=== PATIENT | female | born 1990 | race Caucasian/White ===

== ENCOUNTER 2018-09-16 19:24 | Emergency (ER) | payer OTHER, SELFPAY ==
[2018-09-16 19:26] VITALS: BP 138/71; PULSE 110; RESP 16; TEMP 36.7; O2SAT 99
--- NOTE | 2018-09-16 19:38 | W.ED.GENAD ---
Discharge Plan Disposition Patient Disposition: HOME Condition: Fair Discharge Details Chief Complaint: Sorethroat Clinical Impression: Strep pharyngitis Primary Care Provider: Taylor Claire ED Provider: Yolanda Burns Home Meds and New Rx's Prescriptions: New amoxicillin 500 mg capsule 500 mg PO BID Qty: 18 RF: 0 Continued ibuprofen 200 MG tablet 3 - 4 tab PO BID PRNRF: 0 ciprofloxacin HCl 500 MG tablet 500 mg PO BID Qty: 14 RF: 0 ondansetron 4 MG tablet,disintegrating 4 mg PO Q8H PRN PRN (Reason: Nausea / Vomiting) Qty: 30 RF: 0 Discharge Instructions Instructions: Strep Throat (ED) Additional Instructions: Encourage hydration. Tylenol and/or Ibuprofen as needed for discomfort. Take antibiotics as prescribed. Even if symptoms improve please finish entire course. Change you toothbrush as discussed. If you develop inability to stay hydrated, are unable to open your mouth or develop other new/worsening symptoms please seek care urgently once again. Follow up with primary care if not improved next week. Stand Alone Forms: Work Release Referrals: Taylor Claire MD, [place] [Primary Care Provider] - Medical Decision Making Patient is a 28-year-old female presents today with chief complaint of sore throat. Patient reports that symptoms began approximately 2 days ago. Is now endorsing right ear pain as well. Is unclear she has had any fevers. Denies any GI upset. Boyfriend was recently diagnosed with strep throat. No rash noted. Denies SOB, cough. On exam, appears comfortable. Exam signficant for bilateral tonsillar hypertrophy, erythema and white exudate. Findings consistent with strep throat. She has palpable lymphadenopathy. Rapid strep positive. UPT negative. Will treat with Amoxicillin. Discussed watch and wait but given patients employment, feel that abx is appropriate. She was given return precautions. Will f/u with PCP if not improving. All questions and concerns were addressed, she is in agreement with this plan. HPI General Mode of arrival: ambulatory. Date/Time Provider Initiated Documentation: 09/16/18 19:31. Limitations to Documentation: no limitations. Information obtained by: patient, family (accompanied by significant other) and RN notes reviewed. History of Present Illness 28 year old F presents to the emergency department with the chief complaint of sore throat, described as moderate, with intensity rated at 6. Quality is described as burning, and is localized to the mouth. Patient reports no radiation. Patient started experiencing this day(s) (2) and it has been constant. No relieving factors improve symptom(s), Eating worsens symptoms . Patient notes loss of appetite; denies chest pain, cough, fever/chills, headaches, nausea/vomiting, rash, shortness of breath, syncope and weakness. Patient did receive the following treatments prior to arrival, NSAID Related Data Home Medications Medication Instructions Recorded Confirmed ibuprofen 3 - 4 tab PO BID PRN 09/13/14 10/12/17 ciprofloxacin HCl 500 mg PO BID #14 tab 10/12/17 ondansetron 4 mg PO Q8H PRN PRN #30 tabef 10/12/17 amoxicillin 500 mg PO BID #18 cap 09/16/18 Previous Rx's Medication Instructions Recorded ciprofloxacin HCl 500 mg PO BID #14 tab 10/12/17 ondansetron 4 mg PO Q8H PRN PRN #30 tabef 10/12/17 amoxicillin 500 mg PO BID #18 cap 09/16/18 Allergies Allergy/AdvReac Type Severity Reaction Status Date / Time No Known Allergies Allergy Unverified 09/16/18 19:33 General Stated Complaint: Sorethroat ROMAN: 4 Review of Systems Constitutional Reports as per HPI, Denies chills, Denies fever(s), Denies headache(s), Denies lethargy and Reports poor appetite Eyes Reports as per HPI, Denies eye discharge and Denies irritation ENT Reports as per HPI, Denies dizziness, Reports otalgia (right), Denies headache(s), Denies mouth lesions, Denies nasal discharge, Denies neck pain, Denies sinus pain, Denies sinus pressure, Reports sore throat, Denies throat swelling and Denies tongue swelling Cardiovascular Reports as per HPI, Denies chest pain and Denies dyspnea Respiratory Reports as per HPI, Denies cough and Denies dyspnea Gastrointestinal Reports as per HPI, Denies abdominal pain, Denies change in bowel habits, Denies nausea and Denies vomiting Musculoskeletal Denies neck pain Integumentary/Breasts Reports as per HPI and Denies rash Neurologic Reports as per HPI, Denies dizziness and Denies headache(s) Allergic/Immunologic Denies throat swelling and Denies tongue swelling [facility] Surgical History Appendectomy (11/27/16) Family History Mother Diabetes Father No problems noted. Brother No problems noted. Grandfather Diabetes Grandfather Personal history of malignant neoplasm Grandmother No problems noted. Grandmother Personal history of malignant neoplasm FAMILY HISTORY Diabetes Alcohol abuse Personal history of malignant neoplasm Anxiety Depressive disorder Social History Smoking/Tobacco Use Status: Former Tobacco Use Alcohol Intake: current Alcohol Intake frequency: a few times a month Drug use: Occasionally Substance use type: marijuana Do you feel safe at home: Yes Do you feel safe in your relationship?: Yes Exam Const General: cooperative, healthy appearing, comfortable, no acute distress, well developed and well groomed Nutritional Appearance: average body habitus and well nourished Orientation: alert and awake [facility] Head: normal to inspection, normocephalic and atraumatic Ears: hearing grossly normal bilaterally, external ears normal and TM's normal bilaterally General nose exam: external nose normal and nares normal Face and sinus: normal facial exam, sinuses nontender and face symmetric Mouth: oral mucosae normal, lip normal, tongue normal, oropharynx normal, moist mucous membranes, no muffled voice, no trismus and No restricted motion Teeth and gingiva: dentition normal Throat: uvula midline, abnormal tonsil bilaterally erythema, exudates and hypertrophy and no peritonsillar masses Eyes General: appearance normal, both eyes and all related structures Neck Neck: normal visual inspection, full ROM, no lymphadenopathy and no meningeal signs Resp Effort & Inspection: normal respiratory effort, able to speak in complete sentences and no respiratory distress Auscultation: clear to auscultation bilaterally, no rales, no rhonchi and no wheezes Cardio Rate: regular rate Rhythm: regular rhythm Heart Sounds: S1 normal and S2 normal Skin General skin exam: no rashes or lesions noted Neuro General: alert and awake Cognition: normal cognition Speech: speech normal Gait: normal gait Psych Appearance: grossly normal and well kempt Mental Status: mental status grossly normal Speech and Movement: speech and movement normal Course Vital Signs Temperature 36.7 C 09/16/18 19:26 Pulse 110 H 09/16/18 19:26 Respiratory Rate 16 09/16/18 19:26 Blood Pressure 138/71 09/16/18 19:26 Pulse Oximetry 99 09/16/18 19:26 Temperature 36.7 C 09/16/18 19:26 Temperature Source Skin 09/16/18 19:26 Pulse 110 H 09/16/18 19:26 Respiratory Rate 16 09/16/18 19:26 Respiratory Effort Non-Labored 09/16/18 19:31 Blood Pressure 138/71 09/16/18 19:26 Blood Pressure Position Sitting 09/16/18 19:26 Pulse Oximetry 99 09/16/18 19:26 Oxygen Delivery Method Room Air 09/16/18 19:26 Oxygen Flow Rate 0 09/16/18 19:26 Pain Level 6 09/16/18 19:26
[2018-09-16] MEDS: Amoxicillin 500 MG CAP PO ×2 (20:12)
[2018-09-16] MEDS: Acetaminophen 500 MG TAB 1000 MG PO (20:13)
== END 2018-09-16 20:15 | disposition home or self-care (01) ==
PROVIDERS: Emergency Provider Physician Assistant; PCP Nurse Practitioner Family
DX: J02.0 Streptococcal pharyngitis (principal)
CPT/HCPCS: 87880; 99283

== ENCOUNTER 2019-06-02 12:09 | Emergency (ER) | payer OTHER, SELFPAY ==
[2019-06-02 12:17] VITALS: BP 102/76; PULSE 86; RESP 16; TEMP 36.5; O2SAT 100
--- NOTE | 2019-06-02 12:22 | ED.GENADUL_ITS ---
Discharge Plan Disposition Patient Disposition: HOME Condition: Good Discharge Details Chief Complaint: Nausea/Vomit/Diar Clinical Impression: Gastroenteritis Primary Care Provider: Unknown,Unknown ED Provider: Rain Garcia Home Meds and New Rx's Prescriptions: New ondansetron HCl [Zofran] 4 mg tablet 4 mg PO Q8H PRN (Reason: nausea and vomiting) Qty: 7 RF: 0 No Action ibuprofen 200 MG tablet 3 - 4 tab PO BID PRNRF: 0 escitalopram oxalate [Lexapro] 20 mg Tablet 20 mg PO RF: 0 Discharge Instructions Instructions: Gastroenteritis (ED) Additional Instructions: Drink plenty of fluids. Use nausea medication only if needed for nausea and vomiting. Rest activities as tolerated. Advance diet as tolerated. Avoid dairy, spicy and acidic until symptoms have fully relieved. Reevaluation for any persistence of symptoms. Return for any alarming, worsening or increasing symptoms if needed sooner. Discharge Data Discharge Date/Time-TO BE ENTERED AT DEPARTURE: 06/02/19 15:45 Medical Decision Making Is a 28-year-old patient presenting to the emergency room for onset of nausea, vomiting and diarrhea which began at 4:00 this morning associated with subjective chills and fevers. Patient reports several episodes of vomiting beginning this morning which has persisted since, in the last 3 hours describing mostly dry heaving and bilious vomitus. Watery diarrhea associated. Patient was at a concert last night but reports only having 3 drinks. Denies any drug use or use of marijuana. Patient reports abdominal cramping is intermittent relieved after vomiting or bowel movement. Patient is currently menstruating. Patient denies any upper respiratory symptoms. No other concerns or complaints. Feeling dehydrated which prompted her evaluation to the ER today. On exam patient does appear mildly dehydrated however has benign abdominal exam. Clear breath sounds. No focal findings. Plan of care to control patient's nausea as well as rehydrate. Labs ordered as well as testing. Labs revealed a mild elevation of white blood cell count at 12.66 potassium of 3.4 no obvious urinary tract complaints, urine culture pending given urinalysis with moderate bacteria present although patient is asymptomatic therefore will wait for culture results. Patient's vital signs are stable. Patient feels significantly improved at this time. Patient requesting p.o. trial. Patient tolerated oral fluids without difficulty, Jell-O without difficulty. Patient feeling significantly better. Feels stable for discharge home. EKG obtained given patient's daily medication of Lexapro and plan to prescribe Zofran. Patient's EKG is normal sinus rhythm and rate with a normal QTc interval. Likely patient either experiencing viral illness or vomiting after drinking last night. Benign abdominal exam at this time. I have very low suspicion for any intra-abdominal emergency today. Encouraged conservative treatments, alarming symptoms discussed. The patient was stable and requested discharge. Prior to discharge, my usual and customary return precautions were reviewed with the patient - this included follow-up instructions and reasons to return to the Emergency Department if conditions worsens, does not improve as expected, or other new concerns arise. HPI General Date/Time Provider Initiated Documentation: 06/02/19 12:21 . HPI Narrative: This is a 28-year-old patient presenting to the emergency room for complaints of nausea vomiting and diarrhea which began at 4:00 this morning. Patient reports subjective fevers and chills since this morning. Patient reports intermittent abdominal pain which is relieved after vomiting or moving bowels. Patient reports vomiting several times since onset of 4 this morning the last 3 hours primarily bilious and dry heaving. Patient denies any blood in vomitus. Patient reports diarrhea is described as watery with no associated blood. Patient is currently menstruating. Patient did go to a concert last night but reports having only 3 drinks. Denies use of marijuana last night. Patient reports persistent nausea and now feeling dehydrated with some chills. Patient denies any nasal congestion, sore throat or cough. Denies any other upper respiratory symptoms. Related Data Home Medications Medication Instructions Recorded Confirmed ibuprofen 3 - 4 tab PO BID PRN 09/13/14 06/02/19 escitalopram oxalate [Lexapro] 20 mg PO 06/02/19 ondansetron HCl [Zofran] 4 mg PO Q8H PRN #7 tab 06/02/19 Previous Rx's Medication Instructions Recorded ondansetron HCl [Zofran] 4 mg PO Q8H PRN #7 tab 06/02/19 Allergies Allergy/AdvReac Type Severity Reaction Status Date / Time No Known Allergies Allergy Unverified 06/02/19 12:24 General ROMAN: 4 Review of Systems All systems reviewed & are unremarkable except as noted in HPI and below Constitutional Constitutional: Reports chills, Reports fever(s), Reports headache(s) and Reports malaise ENT Ears, Nose, Mouth, and Throat: Denies vertigo, Denies dizziness, Denies otalgia, Reports headache(s), Denies sinus pain, Denies sinus pressure and Denies sore throat Cardiovascular Cardiovascular: Denies chest pain Respiratory Respiratory: Denies cough Gastrointestinal Gastrointestinal: Reports abdominal pain, Reports cramping, Reports diarrhea, Reports nausea and Reports vomiting Genitourinary Genitourinary: Denies dysuria Neurologic Neurologic: Denies vertigo, Denies dizziness and Reports headache(s) PFSH Family History Mother Diabetes Father No problems noted. Brother No problems noted. Grandfather Diabetes Grandfather Personal history of malignant neoplasm Grandmother No problems noted. Grandmother Personal history of malignant neoplasm FAMILY HISTORY Diabetes Alcohol abuse Personal history of malignant neoplasm Anxiety Depressive disorder Social History Smoking/Tobacco Use Status: Former Tobacco Use Alcohol Intake: current Alcohol Intake frequency: a few times a month Drug use: Occasionally Substance use type: marijuana Do you feel safe at home: Yes Do you feel safe in your relationship?: Yes Exam Narrative Exam Narrative: CONST: Healthy appearing patient, in no acute distress. Well hydrated. Alert and oriented. HENMT: Head nomocephalic, normal to inspection. Atraumatic. Hearing grossly normal. TMs appear normal bilaterally, mild pharyngeal erythema. NECK: Normal visual inspection. FROM. Trachea midline. No Midline tenderness. No cervical lymphadenopathy. CHEST: Normal insepection of the chest. RESP: Normal respiratory effort. Speaking full sentences. No cough. No audible wheezing. No retractions. Breath sounds clear and equal bilaterally, no wheezing, rhonchi or rales CARDIO: No JVD. No murmur, regular rate and rhythm GI: Bowel sounds present in all 4 quadrants. Abdomen is soft. Nontender. No peritoneal signs, rebound or guarding. MUSCULOSKELETAL: Normal Gait. FROM of all extremities. SKIN: Normal. Dry. No rashes. NEURO: Alert and awake. Speech clear. PSYCH: Normal affect. Cooperative.
[2019-06-02] MEDS: Ondansetron 4 MG/2 ML VIAL IVP (12:50)
[2019-06-02] MEDS: Normal Saline 1,000 ML 1000 ML IV ×2 (12:50→13:30)
[2019-06-02 12:57] LABS: Abs Immature Grans 0.03 k/cumm (0.0-0.09); Absolute Lymphocyte Count 0.73 k/cumm (1.2-3.4); Absolute Monocyte Count 0.44 k/cumm (0.11-0.7); Basophils % 0.2; HCT 38.3 % (36.0-46.0); HGB 12.9 g/dL (12.0-15.5); Immature Grans % 0.2 %; Lymphocytes % 5.8; Mean Corp. HGB Concentration 33.7 g/dL (32.0-36.0); Mean Corpuscular Hemoglobin 32.4 pg (27.0-33.0); Mean Corpuscular Volume 96.2 fL (80-95); Monocytes % 3.5; Neutrophils % 90.3; Platelet Count 265 x1000/uL (130-400); RBC 3.98 m/cumm (4.00-5.20); RBC Distribution Width 12.6 % (11.7-14.6); White Blood Cell Count 12.66 k/cumm (4.4-10.8)
[2019-06-02 12:59] LABS: Absolute Basophil Count 0.03 k/cumm (0.0-0.2); Absolute Neutrophil Count 11.43 k/cumm (1.2-6.7)
[2019-06-02 13:11] LABS: ALT 25 U/L (14-59); AST 21 U/L (15-37); Albumin 4.1 g/dL (3.4-5.0); Alkaline Phosphatase 41 U/L (46-116); BUN 13 mg/dL (7-18); Bilirubin, Total 0.9 mg/dL (0.2-1.0); Calcium 8.7 mg/dL (8.5-10.1); Chloride 106 mmol/L (98-107); Glucose 121 mg/dL (74-106); Lipase 59 U/L (73-393); Potassium 3.4 mmol/L (3.5-5.1); Sodium 143 mmol/L (136-145); Total Protein 6.9 g/dL (6.4-8.2)
[2019-06-02 13:16] LABS: HCG Qual (Serum) Negative
[2019-06-02 15:38] VITALS: BP 116/78; PULSE 84; RESP 20; O2SAT 99
== END 2019-06-02 15:45 | disposition home or self-care (01) ==
PROVIDERS: Emergency Provider Physician Assistant
DX: R51 Headache (principal); R11.2 Nausea with vomiting, unspecified; K52.9 Noninfective gastroenteritis and colitis, unspecified; E86.0 Dehydration
CPT/HCPCS: 36415; 80053; 83690; 93005; 96361; 96374; 99284; 84703; 85025; 93010; J2405

== ENCOUNTER 2020-04-19 14:06 | Outpatient (REF) | payer OTHER, SELFPAY ==
[2020-04-19 18:14] LABS: HCT 41.7 % (36.0-46.0); MCH 32.5 pg (27.0-33.0); MCHC 33.6 % (32.0-36.0); MCV 96.8 fL (80-95); MPV 9.3 fL (8.0-11.0); Platelet Count 314 10^3/uL (130-400); RBC 4.31 10^6/uL (3.93-5.22); RDW 12.8 % (11.7-14.6)
[2020-04-19 18:40] LABS: ALT 17 U/L (14-59); AST 13 U/L (15-37); Albumin 4.3 g/dL (3.4-5.0); Alkaline Phosphatase 67 U/L (46-116); Anion Gap 9.5 mmol/L (3-11); BUN 15 mg/dL (7-18); Bilirubin, Total 0.4 mg/dL (0.2-1.0); CO2 29.5 mmol/L (21.0-32.0); CREATININE 0.81 mg/dL (0.55-1.02); Calcium 9.1 mg/dL (8.5-10.1); Calculated LDL 122 mg/dL (<100); Chloride 99 mmol/L (98-107); Cholesterol 206 mg/dL (<200); Glucose 82 mg/dL (74-106); HDL Cholesterol 68 mg/dL (40-60); Potassium 3.6 mmol/L (3.5-5.1); Sodium 138 mmol/L (136-145); TSH (W/Ref FT4) 3.61 uIU/mL (0.36-3.74); Total Protein 7.3 g/dL (6.4-8.2); Triglyceride 81 mg/dL (<150)
[2020-04-19 19:42] LABS: Vitamin D 25 Total 14.5 ng/ml (30-100)
[2020-04-21 09:48] LABS: HIV-1/2 Ag & Ab Screen Negative (Negative)
[2020-04-21 10:06] LABS: Hepatitis C Ab w Rflx HCV PCR Negative (Negative)
== END 2020-04-19 14:26 ==
LOC: NCHCN 14:06
PROVIDERS: PCP Nurse Practitioner Family; Visit Provider Nurse Practitioner Family
DX: Z13.220 Encounter for screening for lipoid disorders (principal); Z83.3 Family history of diabetes mellitus; Z00.00 Encounter for general adult medical examination without abnormal findings
CPT/HCPCS: 80053; 80061; 82306; 85027; 86803; 87389; 84443

== ENCOUNTER 2021-11-07 13:45 | Emergency (ER) | payer OTHER, SELFPAY ==
[2021-11-07 13:52] VITALS: BP 127/90; PULSE 85; RESP 14; TEMP 36.6; O2SAT 100
--- OUTSIDE RECORDS SUMMARY | 2021-11-07 13:56 | XMS_ITS | Encounter Summary ---
:1990 Author Organization [facility] Address [address] [place] [address] Care Team Providers Name Role Phone Unknown, Provider Primary Care Provider Encounter Details Date Type Department Care Team Description 04/20/2020 Lab Requisition [facility] Outr Resulting Lab, Pathology & Laboratory Provider [facility] [address] [place] [address] Social History Tobacco Use Types Packs/Day Years Used Date Never Assessed Sex Assigned at Date Recorded Not on file documented as of this encounter Plan of Treatment Not on filedocumented as of this encounter Procedures Procedure Name Priority Date/Time Associated Diagnosis Comme nts HEPATITIS C AB W Routine 04/19/2020 18:30 Results for this REFLEX TO HCV RNA EST procedure are in BY PCR the results section. documented in this encounter Results HEPATITIS C AB W REFLEX TO HCV RNA BY PCR (04/19/2020 18:30 EST) Pathologist Sig nature Hep C Antibody Negative Negative [facility] Specimen Blood - Venous blood (substance) Performing Organization Address City/State/ZIP Code Phon e Number [facility] [address] [place] [address] SERVICES documented in this encounter Visit Diagnoses Not on filedocumented in this encounter Care Teams Bacteriology Teacher Relationship Specialty Start Date End Date Unknown, Provider, PCP - General 09/14/14 documented as of this encounter
--- OUTSIDE RECORDS SUMMARY | 2021-11-07 13:56 | XMS_ITS | Encounter Summary ---
:1990 Author Organization [facility] Address [address] [place] [address] Care Team Providers Name Role Phone Unknown, Provider Primary Care Provider Encounter Details Date Type Department Care Team Description 09/13/2014 Results Only [facility] Taylor Claire MD [phone] [place] [id number] (Wo rk) Social History Tobacco Use Types Packs/Day Years Used Date Never Assessed Sex Assigned at Date Recorded Not on file documented as of this encounter Plan of Treatment Not on filedocumented as of this encounter Procedures Procedure Name Priority Date/Time Associated Diagnosis Comme nts PAP TEST- RESULT Routine 09/13/2014 0:00 EDT Resu lts for this ONLY procedure are i n the results section. documented in this encounter Results PAP TEST- RESULT ONLY (09/13/2014 0:00 EDT) Pathology Report: CYTOPATHOLOGY REPORT [facility] Reports generated via electronic interface contain meg ginal data; SERVICES however they are lacking the format of the original re port. Caution should be taken when reading/interpreting unfo rmatted reports. Name: ? ORIN ADAMS ? Accession #: ? [id number] : ? 1990 (Age: 23) ??F ?Collect Date: ? 0508/2014 Location: ? [facility] ? Receive Date : ? 09/14/2014 Provider: ?TAYLOR CLAIRE MD Copy to: ? Specimen/Source: ? Pap Test, Cervix/Endocervix, ThinPrep Imaging System with manual evaluation Last Menstrual Period: ? 5 years ago Hormonal/Contraceptive Status: ? Depo-Provera Other: ? Additional clinical information: no history of pap sme ars ? SPECIMEN ADEQUACY ? Satisfactory for Evaluation - transformation zone component present GENERAL CATEGORIZATION ? Negative for Intraepithelial Lesion or Malignan cy ? Document reviewed and electronically signed by: ? COLE Salcido(ASCP) ? Report Date: ??09/23/2014 11:54 End of Report Specimen Performing Organization Address City/State/ZIP Code Phon e Number [facility] [address] [place] [address] SERVICES documented in this encounter Visit Diagnoses Not on filedocumented in this encounter Care Teams Jailer Relationship Specialty Start Date End Date Unknown, Provider, PCP - General 09/14/14 documented as of this encounter
--- OUTSIDE RECORDS SUMMARY | 2021-11-07 13:56 | XMS_ITS | Encounter Summary ---
:1990 Author Organization [facility] Address [address] [place] [address] Care Team Providers Name Role Phone Unknown, Provider Primary Care Provider Encounter Details Date Type Department Care Team Description 04/20/2020 Lab Requisition [facility] Outr Resulting Lab, Pathology & Laboratory Provider [facility] [address] [place] [address] Social History Tobacco Use Types Packs/Day Years Used Date Never Assessed Sex Assigned at Date Recorded Not on file documented as of this encounter Plan of Treatment Not on filedocumented as of this encounter Procedures Procedure Name Priority Date/Time Associated Comments Diagnosis HIV 1/2 ANTIGEN AND Routine 04/19/2020 18:30 Resu lts for this ANTIBODY, 4TH EST procedure are in GENERATION the results section. documented in this encounter Results HIV 1/2 ANTIGEN AND ANTIBODY, 4TH GENERATION (04/19/2020 18:30 EST) HIV 1 and 2 Negative Negative [facility] Antibody/p24 Comment: LABORATORY Antigen, 4th If acute HIV-1 infection is suspected in a high risk ??patient, submit plasma specimen for HIV-1 RNA quantitation test. SERV ICES Generation Fourth Generation assay performed on the Siemens [employer]nera ur. Specimen Blood - Venous blood (substance) Performing Organization Address City/State/ZIP Code Phon e Number [facility] [address] [place] [address] SERVICES documented in this encounter Visit Diagnoses Not on filedocumented in this encounter Care Teams Keyboard Teacher Relationship Specialty Start Date End Date Unknown, Provider, PCP - General 09/14/14 documented as of this encounter
--- NOTE | 2021-11-07 13:59 | ED.GENADUL_ITS ---
Discharge Plan Disposition Patient Disposition: HOME Condition: Improving Discharge Details Clinical Impression: Abdominal pain Primary Care Provider: Kale Powell ED Provider: Amita Boyer Discharge Instructions Instructions: Abdominal Pain (ED) Additional Instructions: Your imaging today is reassuring and shows no evidence of acute concerning or significant findings. Your potassium was slightly low at 3.2 which likely is associated with diet and can be supplemented with foods such as bananas, kale, tomatoes, garlic. Your white blood cell count was also elevated which could be indicative of a stress response. Your CT scan imaging today was done without oral or IV contrast. If your symptoms return and worsen, it is recommended to return immediately to the emergency department for further evaluation and consideration for repeat CT imaging. Drink plenty of fluids and get plenty of rest. Alternate tylenol and motrin as needed and directed for pain. Follow-up with your primary care doctor and [facility] within the next 1 to 2 weeks. Return to the emergency department with any worsening or new concerning symptoms. Referrals: [facility] [place] [Provider Group] Discharge Data Discharge Physician: Amita Boyer Medical Decision Making 1400 -- 31-year-old female with a history of appendectomy presents with right lower quadrant abdominal pain with radiation to her back for the past 4 hours. Admits to nausea but denies any vomiting, diarrhea or urinary symptoms. Vitals within normal limits. Patient appears uncomfortable. She is writhing in pain on the stretcher. She has been on a dry heaving here in the emergency department. Urine test negative. Differential diagnosis includes kidney stone, ovarian cyst, ovarian torsion, cholelithiasis, cholecystitis. Will obtain pelvis and transvaginal ultrasounds, gallbladder ultrasound, screening labs, give fluids, dose of IV Dilaudid, Toradol, Phenergan and reassess. Patient is agreeable to CT renal colic if indicated. 1510 -- labs and imaging reviewed. White blood cell count 20. Potassium 3.2, will replete. T bili 1.5, has been 1.7 in the past. Lipase normal. Urinalysis negative for infection or blood. Pelvis and transvaginal and gallbladder ultrasound unremarkable. Patient reassessed and her pain and nausea has improved. Will give additional IV fluids and refer for CT renal colic to rule out kidney stone. 1630 --CT renal colic negative for acute findings. Patient reassessed and she remains pain-free. Patient feels comfortable going home. Discussed with patient that her imaging today was done without oral or IV contrast and in the setting of a white blood cell count of 20 which is likely a stress response, if her symptoms return and worsen, it is recommended to return immediately to the emergency department for reevaluation and consideration for additional imaging. Patient states she has not been sexually active for a year and denies any known exposure to STDs. She states she would follow-up with [facility] for evaluation. Usual and customary return precautions given prior to discharge. Medical Records Medical records reviewed: Yes I reviewed the patient's medical records. Imaging Data Radiologic Study: Radiologist's impression: US ABDOMEN LIMITED CLINICAL HISTORY:? R mid abdomen pain, r/o cholecystitis TECHNIQUE:? Ultrasound abdomen performed using standard protocol. COMPARISON:? No exams were available for comparison FINDINGS: PANCREAS: Normal where visualized. GALLBLADDER:No evidence of cholelithiasis. No evidence of wall thickening. No pericholecystic fluid identified. BILIARY SYSTEM: Common bile duct measures < 7 mm. No intrahepatic biliary ductal dilation. CANDELARIO'S SIGN: Negative. RIGHT KIDNEY: Kidney is normal in size.? No evidence of renal calculi. No evidence of hydronephrosis. No renal mass or cyst identified. ASCITES: None seen. IMPRESSION: 1. Negative limited gallbladder ultrasound. 2. Results of this exam have been verbally communicated with provider. US PELVIS ? TRANSVAGINAL CLINICAL HISTORY: ? RLQ abd pain, nausea, r/o ovarian cyst/torsion.? TECHNIQUE:? Ultrasound renal, pelvic, both abdmonal and tranvaginal was performed using standard protocol. COMPARISON:? No exams were available for comparison FINDINGS: RENAL: Renal size in cm: Right: 10.6 left: 12.1 Echogenicity: Normal. Hydronephrosis: No. Cyst or mass: No. Nephrolithiasis: No. Other findings: None. Color: Symmetric and uniform flow to both kidneys.? PELVIC: UTERUS: Position: Anteverted. Size: 4.9 long by 3 AP by 4 transverse cm Endometrium: 0.1 cm. Normal for patient's menstrual status.? There is an IUD which is in good position. Myometrium: Unremarkable. Cervix: Unremarkable. OVARIES: Right: 3.5 x 2.5 x 2.6 cm Cyst or mass: No suspicious cystic or solid masses. Left: 3.4 x 2.1 x 3.1 cm Cyst or mass: No suspicious cystic or solid masses. DOPPLER: Color: Symmetric and uniform flow to both ovaries. No hyperemia. CUL-DE-SAC: Free fluid: None. IMPRESSION: 1. Normal sonographic appearance of the kidneys. 2. Normal-appearing uterus with endometrial stripe within normal limits.? IUD is in good position. 3. Unremarkable bilateral ovaries. 4. Results of this exam have been verbally communicated with provider. CT RENAL COLIC WO CLINICAL HISTORY: ? R mid and lower abd/back pain, r/o kidney stone.? TECHNIQUE:? Imaging Protocol: Axial computed tomography images with coronal and sagittal reformatted images were created and reviewed. COMPARISON:? CT ABD ? PELVIS WITH CONTRAST from 10/12/2017 FINDINGS: ABDOMEN: Lung Bases: Normal where visualized. Liver: Normal density. No measurable mass. Gallbladder and biliary tract: No radiodense calculus or biliary ductal dilation. Pancreas: Normal density, no abnormal calcifications or inflammatory process. Spleen: Normal. Kidneys: Normal size, contour and axis.No radiodense stones or obstructive uropathy. No masses seen. Adrenal glands: No mass is seen. Lymph nodes: Within normal limits.? Abdominal Aorta: Abdominal portion non-dilated. PELVIS:? Bladder:Symmetric distention, no gross wall thickening. Bowel: No obstruction or bowel wall thickening. No evidence of appendicitis.? Peritoneal cavity: No ascites, collection or mesenteric inflammatory response.? No free air.? Reproductive organs: Unremarkable as visualized.? There is an IUD in good position. Bones: Within normal limits. Soft Tissues: Within normal limits. IMPRESSION: 1. No evidence of nephrolithiasis or hydronephrosis. 2. Results of this exam have been verbally communicated with provider.? Lab Data Lab results reviewed: Yes I reviewed the patient's lab results. Labs: Laboratory Tests Range/Units 11/07/21 11/07/21 11/07/21 14:01 14:06 14:06 WBC (4.4-10.8) 10^3/uL 20.95 H RBC (3.93-5.22) 10^6/uL 4.45 Hgb (11.2-15.7) g/dL 14.1 Hct (36.0-46.0) % 42.5 MCV (80-95) fL 96 H MCH (27.0-33.0) pg 31.7 MCHC (32.0-36.0) % 33.2 RDW (11.7-14.6) % 12.8 Plt Count (130-400) 10^3/uL 293 MPV (8.0-11.0) fL 9.1 Immature Gran % 0.5 Neutrophils % 80.7 Lymphocytes % 12.1 Monocytes % 6.1 Eosinophils % 0.2 Basophils % 0.4 Nucleated RBC % (0.0-0.3) % 0.0 Absolute Neutrophils (1.2-6.7) 10^3/uL 16.91 H Absolute Lymphocytes (1.2-3.4) 10^3/uL 2.53 Absolute Monocytes (0.1-0.8) 10^3/uL 1.28 H Absolute Eosinophils (0.0-0.7) 10^3/uL 0.04 Absolute Basophils (0.0-0.2) 10^3/uL 0.08 Sodium (136-145) mmol/L 139 Potassium (3.5-5.1) mmol/L 3.2 L Chloride (98-107) mmol/L 103 Carbon Dioxide (21.0-32.0) mmol/L 28.0 Anion Gap (3-11) mmol/L 8.0 BUN (7-18) mg/dL 9 Creatinine (0.55-1.02) mg/dL 0.8 Estimated GFR/1.73 m2 (mL/min/1.73m2) >= 60.00 Glucose (74-106) mg/dL 119 H Calcium (8.5-10.1) mg/dL 8.9 Total Bilirubin (0.2-1.0) mg/dL 1.5 H AST (15-37) U/L 14 L ALT (14-59) U/L 20 Alkaline Phosphatase (46-116) U/L 51 Total Protein (6.4-8.2) g/dL 7.3 Albumin (3.4-5.0) g/dL 4.4 Lipase (73-393) U/L 129 Urine Color (Yellow) Yellow Urine Clarity (Clear) Clear Urine pH (5-8) 5.5 Ur Specific [place] (1.005-1.025) >= 1.030 H Urine Protein (Negative) mg/dL Negative Urine Ketones (Negative) mg/dL Negative Urine Blood (Negative) Negative Urine Nitrite (Negative) Negative Urine Bilirubin (Negative) Negative Urine Urobilinogen (Up TO 0.2) EU/dL 0.2 Ur Leukocyte Esterase (Negative) Negative Urine Glucose (Negative) mg/dL Negative HPI General Mode of arrival: ambulatory . Date/Time Provider Initiated Documentation: 11/07/21 13:51 . Limitations to Documentation: no limitations . Information obtained by: patient . HPI Narrative: Patient is a 31-year-old female with a history of appendectomy presents with constant sharp right lower quadrant abdominal pain with radiation around to her back for the past 4 hours. Patient admits to nausea but denies any vomiting, fever, urinary symptoms or diarrhea. She has not taken a medication for pain. Related Data Allergies Allergy/AdvReac Type Severity Reaction Status Date / Time No Known Allergies Allergy Unverified 11/07/21 13:56 General Stated Complaint: Abd Prob ROMAN: 3 Review of Systems All systems reviewed & are unremarkable except as noted in HPI and below Constitutional Constitutional: Denies chills, Denies excessive sweating, Denies fatigue, Denies fever(s), Denies weakness and Denies weight loss Eyes Eyes: Reports system reviewed and no additional complaints, except as documented and Denies blurry vision ENT Ears, Nose, Mouth, and Throat: Denies vertigo, Denies dizziness, Denies otalgia, Denies nasal congestion, Denies sore throat and Denies throat swelling Cardiovascular Cardiovascular: Denies chest pain, Denies syncope, Denies rapid heart rate and Denies dyspnea Respiratory Respiratory: Denies chest congestion, Denies cough, Denies pain on inspiration and Denies dyspnea Gastrointestinal Gastrointestinal: Reports abdominal pain, Denies diarrhea, Reports nausea and Denies vomiting Genitourinary Genitourinary: Denies hematuria, Denies dysuria and Denies flank pain Musculoskeletal Musculoskeletal: Denies back pain and Denies joint swelling Integumentary/Breasts Skin/Breast: Denies lesions and Denies rash Neurologic Neurologic: Denies behavioral changes, Denies confusion, Denies vertigo, Denies dizziness, Denies syncope, Denies localized weakness and Denies weakness Psychiatric Psychiatric: Denies behavioral changes, Denies confusion and Denies depression Endocrine Endocrine: Denies excessive sweating and Denies fatigue Hematologic/Lymphatic Hematologic/Lymphatic: Denies easy bruising and Denies lymphadenopathy Allergic/Immunologic Allergic/Immunologic: Denies throat swelling PFSH All Active Problems (Updated 11/07/21 @ 16:33 by Amita Boyer DO) Abdominal pain (Acute) Medical History (Updated 11/07/21 @ 16:33 by Amita Boyer DO) No significant past medical history Surgical History Appendectomy (11/27/16) Family History Mother Diabetes Father No problems noted. Brother No problems noted. Grandfather Diabetes Grandfather Personal history of malignant neoplasm Grandmother No problems noted. Grandmother Personal history of malignant neoplasm FAMILY HISTORY Diabetes Alcohol abuse Personal history of malignant neoplasm Anxiety Depressive disorder Social History Smoking/Tobacco Use Status: Current every day Smoking risk assessment performed?: Yes Alcohol Intake: former Drug use: Occasionally Substance use type: does not use and marijuana Do you feel safe at home: Yes Do you feel safe in your relationship?: Yes Exam Const General: cooperative and uncomfortable Orientation: alert, awake and oriented x3 HENMT Head: normal to inspection Ears: hearing grossly normal bilaterally, external ears normal and TM's normal bilaterally General nose exam: external nose normal Face and sinus: normal facial exam Mouth: oral mucosae normal Teeth and gingiva: dentition normal Throat: posterior oropharynx normal Eyes General: appearance normal, both eyes and all related structures Eyelids: eyelids normal Pupils: PERRL EOM: EOM intact bilaterally Neck Neck: normal visual inspection Lymphatic: no lymphadenopathy noted Chest Chest: normal inspection of the chest Resp Effort & Inspection: normal respiratory effort and able to speak in complete sentences Auscultation: clear to auscultation bilaterally Cardio Rate: regular rate Rhythm: regular rhythm GI Inspection: normal to inspection Palpation: soft, not firm, no guarding, no hepatosplenomegaly, no masses and tender (Right mid to lower abdomen) Auscultation: normal bowel sounds Skin General skin exam: no rashes or lesions noted Neuro General: patient alert and patient awake Cognition: normal cognition Speech: speech normal Gait: normal gait Motor: muscle tone normal throughout Sensory Exam: no sensory deficits noted Extrem General: normal to inspection, full ROM and capillary refill normal Psych Appearance: grossly normal Mental Status: mental status grossly normal Speech and Movement: speech and movement normal Affect: normal affect Thought Process: normal Course Vital Signs Vital signs: Vital Signs Temperature 97.9 F 11/07/21 13:52 Pulse 85 11/07/21 13:52 Respiratory Rate 14 11/07/21 13:52 Blood Pressure 127/90 11/07/21 13:52 Pulse Oximetry 100 11/07/21 13:52 Temperature 97.9 F 11/07/21 13:52 Temperature Source Temporal Artery Scan 11/07/21 13:52 Pulse 85 11/07/21 13:52 Respiratory Rate 14 11/07/21 13:52 Blood Pressure 127/90 11/07/21 13:52 Blood Pressure Position Supine 11/07/21 13:52 Pulse Oximetry 100 11/07/21 13:52 Oxygen Delivery Method Room Air 11/07/21 13:52 Oxygen Flow Rate 0 11/07/21 13:52 Pain Level 8 11/07/21 13:52
[2021-11-07 14:13] LABS: Bilirubin Negative (Negative); Blood Negative (Negative); Clarity Clear (Clear); Glucose Negative (Negative); Ketones Negative (Negative); Leukocyte Esterase Negative (Negative); Nitrite Negative (Negative); Specific Gravity >= 1.030 (1.005-1.025); Urobilinogen 0.2 EU/dL (Up TO 0.2); pH 5.5 (5-8)
--- NOTE | 2021-11-07 14:15 | DI.US_ITS ---
Exam(s) US ABDOMEN LIMITED EXAM: US ABDOMEN LIMITED CLINICAL HISTORY: R mid abdomen pain, r/o cholecystitis TECHNIQUE: Ultrasound abdomen performed using standard protocol. COMPARISON: No exams were available for comparison FINDINGS: PANCREAS: Normal where visualized. GALLBLADDER:No evidence of cholelithiasis. No evidence of wall thickening. No pericholecystic fluid i dentified. BILIARY SYSTEM: Common bile duct measures < 7 mm. No intrahepatic biliary ductal dilation. CANDELARIO'S SIGN: Negative. RIGHT KIDNEY: Kidney is normal in size. No evidence of renal calculi. No evidence of hydronephrosis. No renal mass or cyst identified. ASCITES: None seen. IMPRESSION: 1. Negative limited gallbladder ultrasound. 2. Results of this exam have been verbally communicated with provider. DATA REPOSITORY:
--- NOTE | 2021-11-07 14:15 | DI.US_ITS ---
Exam(s) US PELVIS TRANSVAGINAL EXAM: US PELVIS TRANSVAGINAL CLINICAL HISTORY: RLQ abd pain, nausea, r/o ovarian cyst/torsion. TECHNIQUE: Ultrasound renal, pelvic, both abdmonal and tranvaginal was performed using standard prot ocol. COMPARISON: No exams were available for comparison FINDINGS: RENAL: Renal size in cm: Right: 10.6 left: 12.1 Echogenicity: Normal. Hydronephrosis: No. Cyst or mass: No. Nephrolithiasis: No. Other findings: None. Color: Symmetric and uniform flow to both kidneys. PELVIC: UTERUS: Position: Anteverted. Size: 4.9 long by 3 AP by 4 transverse cm Endometrium: 0.1 cm. Normal for patient's menstrual status. There is an IUD which is in good positio n. Myometrium: Unremarkable. Cervix: Unremarkable. OVARIES: Right: 3.5 x 2.5 x 2.6 cm Cyst or mass: No suspicious cystic or solid masses. Left: 3.4 x 2.1 x 3.1 cm Cyst or mass: No suspicious cystic or solid masses. DOPPLER: Color: Symmetric and uniform flow to both ovaries. No hyperemia. CUL-DE-SAC: Free fluid: None. IMPRESSION: 1. Normal sonographic appearance of the kidneys. 2. Normal-appearing uterus with endometrial stripe within normal limits. IUD is in good position. 3. Unremarkable bilateral ovaries. 4. Results of this exam have been verbally communicated with provider. DATA REPOSITORY:
[2021-11-07 14:28] LABS: Absolute Basophil Count 0.08 10^3/uL (0.0-0.2); Absolute Eosinophil Count 0.04 10^3/uL (0.0-0.7); Absolute Monocyte Count 1.28 10^3/uL (0.1-0.8); Absolute Neutrophil Count 16.91 10^3/uL (1.2-6.7); Basophils % 0.4; Eosinophils % 0.2; HCT 42.5 % (36.0-46.0); HGB 14.1 g/dL (11.2-15.7); Immature Grans % 0.5; Lymphocytes % 12.1; MCH 31.7 pg (27.0-33.0); MCHC 33.2 % (32.0-36.0); MCV 96 fL (80-95); MPV 9.1 fL (8.0-11.0); Monocytes % 6.1; Neutrophils % 80.7; Platelet Count 293 10^3/uL (130-400); RBC 4.45 10^6/uL (3.93-5.22); RDW 12.8 % (11.7-14.6); RDW-SD 45.6 fL; WBC 20.95 10^3/uL (4.4-10.8)
[2021-11-07 14:29] LABS: Absolute Lymphocyte Count 2.53 10^3/uL (1.2-3.4)
[2021-11-07] MEDS: HYDROmorphone 2 MG/ML VIAL 1 MG IVP (14:29)
[2021-11-07] MEDS: Ketorolac 30 MG/ML VIAL IVP (14:31)
[2021-11-07 14:32] LABS: ALT 20 U/L (14-59); AST 14 U/L (15-37); Albumin 4.4 g/dL (3.4-5.0); Alkaline Phosphatase 51 U/L (46-116); BUN 9 mg/dL (7-18); Bilirubin, Total 1.5 mg/dL (0.2-1.0); CREATININE 0.8 mg/dL (0.55-1.02); Calcium 8.9 mg/dL (8.5-10.1); Chloride 103 mmol/L (98-107); Glucose 119 mg/dL (74-106); Lipase 129 U/L (73-393); Potassium 3.2 mmol/L (3.5-5.1); Sodium 139 mmol/L (136-145); Total Protein 7.3 g/dL (6.4-8.2)
[2021-11-07] MEDS: Normal Saline 1,000 ML 1000 ML IV ×2 (14:35→16:08)
--- NOTE | 2021-11-07 15:15 | DI.CT_ITS ---
Exam(s) CT RENAL COLIC WO EXAM: CT RENAL COLIC WO CLINICAL HISTORY: R mid and lower abd/back pain, r/o kidney stone. TECHNIQUE: Imaging Protocol: Axial computed tomography images with coronal and sagittal reformatted images were created and reviewed. COMPARISON: CT ABD PELVIS WITH CONTRAST from 10/12/2017 FINDINGS: ABDOMEN: Lung Bases: Normal where visualized. Liver: Normal density. No measurable mass. Gallbladder and biliary tract: No radiodense calculus or biliary ductal dilation. Pancreas: Normal density, no abnormal calcifications or inflammatory process. Spleen: Normal. Kidneys: Normal size, contour and axis.No radiodense stones or obstructive uropathy. No masses seen. Adrenal glands: No mass is seen. Lymph nodes: Within normal limits. Abdominal Aorta: Abdominal portion non-dilated. PELVIS: Bladder:Symmetric distention, no gross wall thickening. Bowel: No obstruction or bowel wall thickening. No evidence of appendicitis. Peritoneal cavity: No ascites, collection or mesenteric inflammatory response. No free air. Reproductive organs: Unremarkable as visualized. There is an IUD in good position. Bones: Within normal limits. Soft Tissues: Within normal limits. IMPRESSION: 1. No evidence of nephrolithiasis or hydronephrosis. 2. Results of this exam have been verbally communicated with provider. RADIATION DOSE DELIVERED: 489.42mGy.cm Total DLP DATA REPOSITORY: All CT scans at this facility are submitted to the National Radiology Data Registry (NRDR) Dose Index Registry (DIR) with the [employer] (A[employer]). RADIATION OPTIMIZATION: All CT scans at this facility use at least one of these dose optimization te chniques: automated exposure control; mA and/or kV adjustment per patient size (includes targeted exa ms where dose is matched to clinical indication); or iterative reconstruction.
[2021-11-07] MEDS: Potassium Chloride 20 MEQ TABCR 40 MEQ PO (15:22)
[2021-11-07 16:38] VITALS: BP 120/75; PULSE 55; TEMP 36.7; O2SAT 100
== END 2021-11-07 16:52 | disposition home or self-care (01) ==
PROVIDERS: Emergency Provider Physician Assistant; PCP Nurse Practitioner Family
DX: R10.31 Right lower quadrant pain (principal); M54.9 Dorsalgia, unspecified; R11.0 Nausea; M54.50 Low back pain, unspecified; E87.6 Hypokalemia
CPT/HCPCS: 80053; 81025; 83690; 96361; 96365; 96366; 96375; 99284; 74176; 76705; 76830; 76856; 81003; 85025; J1885

== ENCOUNTER 2021-11-14 18:27 | Emergency (ER) | payer OTHER, SELFPAY ==
[2021-11-14] VITALS (93 sets, daily range): BP systolic 117–147; BP diastolic 64–84; PULSE 87–107; RESP 12–25; TEMP 36.7; O2SAT 94–100
[2021-11-14] MEDS: Normal Saline 1,000 ML 1000 ML IV (18:51)
--- NOTE | 2021-11-14 19:00 | DI.CT_ITS ---
Exam(s) CT CHEST PE ABD PELVIS W EXAM: CT CHEST PE ABD PELVIS W CLINICAL HISTORY: SOB, Severe pain, diarrhea. TECHNIQUE: Imaging Protocol: Axial CT angiography was performed with multi-slice acquisition and mu lti-planar and/or 3D reconstructions. CONTRAST MATERIAL: Intravenous: Omnipaque 350 Contrast volume:75 ml COMPARISON: CT CT RENAL COLIC WO from 11/07/2021 FINDINGS: CHEST: Timing bolus somewhat limited. Pulmonary Arteries: No evidence of filling defect to suggest pulmonary emboli. Tracheobronchial tree: Patent where visualized. Mediastinum and Connie: No dominant adenopathy or fluid collection. Pulmonary parenchyma: No consolidation or dominant measurable mass. Expiratory changes. Pleura: No effusion or pneumothorax. Heart: The heart is not dilated. No coronary artery calcifications are seen. Aorta: Thoracic aorta non-dilated. Bones: Normal. Tubes, Catheters, and Lines: ABDOMEN: Liver: Normal density. No measurable mass. Portal, Superior Mesenteric, and Splenic Veins: Unremarkable. Gallbladder and Biliary Tract: No radiodense calculus or dilation. Pancreas: Normal density, no abnormal calcifications or inflammatory process. Spleen: Normal. Adrenals: No masses seen. Kidneys: Normal size, contour and axis. No radiodense stones or obstructive uropathy. No masses seen. Abdominal Aorta: Abdominal portion non-dilated. Bowel: Evaluation of the bowel is somewhat limited due to lack of oral contrast and lack of intra-abd ominal fat. There is abnormal small bowel dilatation with multiple fluid-filled loops. There is ab normal wall thickening seen greatest in the pelvis.. Peritoneal Cavity: Small quantity of ascites abdomen and pelvis. Lymph Nodes: Within normal limits. Bones: Unremarkable. Soft Tissues: Unremarkable. PELVIS: Bladder: Symmetric distention, no gross wall thickening. Reproductive Organs: IUD, otherwise unremarkable as visualized. Lymph Nodes: Within normal limits. Bones: Within normal limits. IMPRESSION: 1. No evidence of pulmonary embolism or other acute abnormality in the chest.. 2. Dilated fluid-filled loops of small bowel and small amount of ascites, consistent with enteritis. RADIATION DOSE DELIVERED: 826.41mGy.cm Total DLP DATA REPOSITORY: All CT scans at this facility are submitted to the National Radiology Data Registry (NRDR) Dose Index Registry (DIR) with the [employer] (ACR). RADIATION OPTIMIZATION: All CT scans at this facility use at least one of these dose optimization te chniques: automated exposure control; mA and/or kV adjustment per patient size (includes targeted exa ms where dose is matched to clinical indication); or iterative reconstruction.
--- NOTE | 2021-11-14 19:05 | ED.GENADUL_ITS ---
Discharge Plan Disposition Patient Disposition: HOME Condition: Stable Discharge Details Clinical Impression: Gastroenteritis, Acute hypokalemia Primary Care Provider: Kale Powell ED Provider: Nuzhat Keller Home Meds and New Rx's Prescriptions: New dicyclomine 20 mg tablet 20 mg PO TID PRN (Reason: abdominal discomfort) Qty: 10 0RF Rx Instructions: Take 3 times a day as needed for abdominal cramping azithromycin 500 mg tablet 500 mg PO DAILY 7 Days Qty: 7 0RF Discharge Instructions Instructions: Hypokalemia (ED), Gastroenteritis (ED) Additional Instructions: CT at this time shows some inflammation to the small bowel right lower quadrant. No evidence of obstruction. Potassium is low today. You were given potassium supplement. Please take potassium supplement over the next 3 days. Take the antibiotic as prescribed with yogurt or probiotic. Please take Tylenol or Ibuprofen with food every 4-6 hours as needed for pain and swelling. follow up with primary care provider in 3-5 days. Return to ED sooner if any worsening or concerns. Increase oral fluids. Stand Alone Forms: Work Release Referrals: Kale Powell, CONSTRUCTION ACC[employer] [Primary Care Provider] - 3 days Discharge Data Discharge Date/Time-TO BE ENTERED AT DEPARTURE: 11/14/21 23:06 Medical Decision Making 31-year-old female presents to the ER with chief complaint of worsening right lower quadrant abdominal pain which radiates up into her mid epigastrium. Patient was seen here approximately a week ago for similar had a full work-up which was negative except for 20,000 white count. Patient reports that she has had continued intermittent pain since being discharged however it worsened to severe today. She describes the pain as sharp stabbing and increased pain with deep breathing. Patient has been taking Tylenol at 1830. She reports yellow type diarrhea. She also notes some spotting after urination. Work-up ordered including CBC, CMP, lipase, CT chest abdomen pelvis rule out PE. Differential diagnosis includes but not limited to cholecystitis, gastroenteritis, kidney stone, PE, pneumonia, stress reaction, CBC shows no leukocytosis white blood cell count 10.71 platelets are 433, absolute neutrophils 7.35, sodium 135 potassium 2.8, chloride 96 glucose 113, lipase within normal limits at 30. Urinalysis is pending at this time. 20 mEq potassium chloride IV piggyback ordered. 20 mEq p.o. liquid potassium also given. Patient reevaluation, she reports feeling much better than when she first arrived. Discussed the CT results and labs with her she verbalizes understanding. We will give azithromycin for possible bacterial colitis and dicyclomine. Instructions given for hypokalemia. Instructed to follow-up with PCP. Discussed tricked return instructions. This text was generated using [email or web address] system, please disregard any oddities of phrase or misspellings. Medical Records Medical records reviewed: Yes I reviewed the patient's medical records. Medical records narrative: Patient seen for similar 1 week ago had essentially negative work-up including negative CT abdomen pelvis without contrast and ultrasound. Lab Data Lab results reviewed: Yes I reviewed the patient's lab results. Labs: Laboratory Tests Range/Units 11/14/21 11/14/21 11/14/21 18:45 18:45 22:07 WBC (4.4-10.8) 10^3/uL 10.71 RBC (3.93-5.22) 10^6/uL 3.97 Hgb (11.2-15.7) g/dL 12.8 Hct (36.0-46.0) % 36.5 MCV (80-95) fL 92 MCH (27.0-33.0) pg 32.2 MCHC (32.0-36.0) % 35.1 RDW (11.7-14.6) % 12.6 Plt Count (130-400) 10^3/uL 433 H MPV (8.0-11.0) fL 8.9 Immature Gran % 1.5 Neutrophils % 68.6 Lymphocytes % 20.2 Monocytes % 8.3 Eosinophils % 0.9 Basophils % 0.5 Nucleated RBC % (0.0-0.3) % 0.0 Absolute Neutrophils (1.2-6.7) 10^3/uL 7.35 H Absolute Lymphocytes (1.2-3.4) 10^3/uL 2.16 Absolute Monocytes (0.1-0.8) 10^3/uL 0.89 H Absolute Eosinophils (0.0-0.7) 10^3/uL 0.10 Absolute Basophils (0.0-0.2) 10^3/uL 0.05 RBC Morphology Normal Sodium (136-145) mmol/L 135 L Potassium (3.5-5.1) mmol/L 2.8 L* Chloride (98-107) mmol/L 96 L Carbon Dioxide (21.0-32.0) mmol/L 29.7 Anion Gap (3-11) mmol/L 9.3 BUN (7-18) mg/dL 9 Creatinine (0.55-1.02) mg/dL 0.7 Estimated GFR/1.73 m2 (mL/min/1.73m2) >= 60.00 Glucose (74-106) mg/dL 113 H Calcium (8.5-10.1) mg/dL 9.1 Magnesium (1.8-2.4) mg/dL 2.3 Total Bilirubin (0.2-1.0) mg/dL 0.8 AST (15-37) U/L 14 L ALT (14-59) U/L 18 Alkaline Phosphatase (46-116) U/L 59 Total Protein (6.4-8.2) g/dL 7.5 Albumin (3.4-5.0) g/dL 3.4 Lipase (73-393) U/L 30 Urine Color (Yellow) Yellow Urine Clarity (Clear) Clear Urine pH (5-8) 6.0 Ur Specific [place] (1.005-1.025) <= 1.005 Urine Protein (Negative) mg/dL Negative Urine Ketones (Negative) mg/dL 80 H Urine Blood (Negative) Trace-lysed H Urine Nitrite (Negative) Negative Urine Bilirubin (Negative) Negative Urine Urobilinogen (Up TO 0.2) EU/dL 0.2 Ur Leukocyte Esterase (Negative) Negative Urine RBC (0-2) HPF Urine WBC (0-5) HPF 0-2 Ur Epithelial Cells (Negative) HPF Negative Urine Crystals (Negative) HPF Negative Urine Bacteria (Negative) HPF Negative Urine Mucus (Negative) Negative Ur Culture Indicated? No Urine Glucose (Negative) mg/dL Negative HPI General Mode of arrival: ambulatory . Date/Time Provider Initiated Documentation: 11/14/21 18:29 . Limitations to Documentation: no limitations . Information obtained by: patient, RN notes reviewed and old records reviewed . HPI Narrative: 31-year-old female presents to the ER with chief complaint of worsening right lower quadrant abdominal pain which radiates up into her mid epigastrium. Patient was seen here approximately a week ago for similar had a full work-up which was negative except for 20,000 white count. Patient reports that she has had continued intermittent pain since being discharged however it worsened to severe today. She describes the pain as sharp stabbing and increased pain with deep breathing. Patient has been taking Tylenol at 1830. She reports yellow type diarrhea. She also notes some spotting after urination. She does have an IUD. She denies any possibility of should have a negative test 1 week ago at her previous visit. Past surgical history includes appendectomy. Related Data Home Medications Medication Instructions Recorded Confirmed azithromycin 500 mg tablet 500 mg PO DAILY 7 days #7 tabs 11/14/21 dicyclomine 20 mg tablet 20 mg PO TID PRN abdominal 11/14/21 discomfort #10 tabs Previous Rx's Medication Instructions Recorded azithromycin 500 mg tablet 500 mg PO DAILY 7 days #7 tabs 11/14/21 dicyclomine 20 mg tablet 20 mg PO TID PRN abdominal 11/14/21 discomfort #10 tabs Allergies Allergy/AdvReac Type Severity Reaction Status Date / Time No Known Allergies Allergy Unverified 11/14/21 18:34 General Stated Complaint: Abd Prob ROMAN: 3 Review of Systems All systems reviewed & are unremarkable except as noted in HPI and below Cardiovascular Cardiovascular: Denies chest pain Respiratory Respiratory: Denies cough, Denies hemoptysis and Reports pain on inspiration Gastrointestinal Gastrointestinal: Reports abdominal pain, Denies melena, Denies hematochezia, Reports early satiety, Reports diarrhea (yellow) and Denies vomiting PFSH All Active Problems (Updated 11/14/21 @ 22:58 by Nuzhat Keller NP) Abdominal pain (Acute) Gastroenteritis (Acute) Acute hypokalemia (Acute) Medical History (Updated 11/14/21 @ 22:58 by Nuzhat Keller NP) No significant past medical history Surgical History Appendectomy (11/27/16) Family History Mother Diabetes Father No problems noted. Brother No problems noted. Grandfather Diabetes Grandfather Personal history of malignant neoplasm Grandmother No problems noted. Grandmother Personal history of malignant neoplasm FAMILY HISTORY Diabetes Alcohol abuse Personal history of malignant neoplasm Anxiety Depressive disorder Social History Smoking/Tobacco Use Status: Current every day Smoking risk assessment performed?: Yes Alcohol Intake: former Drug use: Occasionally Substance use type: does not use and marijuana Do you feel safe at home: Yes Do you feel safe in your relationship?: Yes Exam Narrative Exam Narrative: Constitutional: Alert and oriented x3. Appears stated age. Thin body habitus. Patient appears very uncomfortable upon initial presentation. Head: Normocephalic, no trauma. Eyes: Pupils PERRL, Red reflex noted, EOM's intact. Eyelids symmetrical without lesions, discharge, or swelling. Chest: RRR, Normal S1, S2, distal pulses intact. Resp: Lungs clear to auscultation bilaterally, no wheezes, rales, or rhonchi. Abdomen: , non-distended, generalized tenderness worse right lower quadrant positive guarding. Musculoskeletal: Normal gait, 5/5 strength to all four extremities. Skin: No suspicious rashes or lesions. Capillary refill less than 2 sec. Neurologic: Cranial nerves II-XII intact. Alert and oriented x 3. Motor: No deficits noted. Sensory: Intact bilaterally all 4 extremities. Reflexes: DTR's intact bilaterally.. Hematologic/Lymphatic: No ecchymosis, no lymphadenopathy. Course Vital Signs Vital signs: Vital Signs Temperature 36.7 C 11/14/21 18:31 Pulse 103 H 11/14/21 18:31 Blood Pressure 147/84 H 11/14/21 18:31 Pulse Oximetry 100 11/14/21 18:31 Temperature 36.7 C 11/14/21 18:31 Temperature Source Temporal Artery Scan 11/14/21 18:31 Pulse 92 H 11/14/21 18:46 Respiratory Effort Non-Labored 11/14/21 18:39 Blood Pressure 117/69 11/14/21 18:46 Blood Pressure Position Supine 11/14/21 18:31 Pulse Oximetry 100 11/14/21 18:48 Oxygen Delivery Method Room Air 11/14/21 18:31 Oxygen Flow Rate 0 11/14/21 18:31 Pain Level 8 11/14/21 18:31
[2021-11-14 19:12] LABS: Abs Immature Grans 0.16 10^3/uL (0.0-0.06); Absolute Basophil Count 0.05 10^3/uL (0.0-0.2); Absolute Lymphocyte Count 2.16 10^3/uL (1.2-3.4); Absolute Monocyte Count 0.89 10^3/uL (0.1-0.8); Absolute Neutrophil Count 7.35 10^3/uL (1.2-6.7); Basophils % 0.5; Eosinophils % 0.9; HCT 36.5 % (36.0-46.0); HGB 12.8 g/dL (11.2-15.7); Immature Grans % 1.5; Lymphocytes % 20.2; MCH 32.2 pg (27.0-33.0); MCHC 35.1 % (32.0-36.0); MCV 92 fL (80-95); MPV 8.9 fL (8.0-11.0); Monocytes % 8.3; Neutrophils % 68.6; Platelet Count 433 10^3/uL (130-400); RBC 3.97 10^6/uL (3.93-5.22); RDW 12.6 % (11.7-14.6); RDW-SD 43.2 fL; WBC 10.71 10^3/uL (4.4-10.8)
[2021-11-14] MEDS: Omnipaque 350 MG/ML 100 ML BTL IJ (19:21)
[2021-11-14 19:33] LABS: ALT 18 U/L (14-59); AST 14 U/L (15-37); Albumin 3.4 g/dL (3.4-5.0); Alkaline Phosphatase 59 U/L (46-116); Anion Gap 9.3 mmol/L (3-11); BUN 9 mg/dL (7-18); Bilirubin, Total 0.8 mg/dL (0.2-1.0); CO2 29.7 mmol/L (21.0-32.0); CREATININE 0.7 mg/dL (0.55-1.02); Calcium 9.1 mg/dL (8.5-10.1); Chloride 96 mmol/L (98-107); Glucose 113 mg/dL (74-106); Lipase 30 U/L (73-393); Magnesium 2.3 mg/dL (1.8-2.4); Sodium 135 mmol/L (136-145); Total Protein 7.5 g/dL (6.4-8.2)
[2021-11-14] MEDS: HYDROmorphone 2 MG/ML VIAL 0.5 MG IVP (19:37)
[2021-11-14 19:38] LABS: Potassium 2.8 mmol/L (3.5-5.1)
[2021-11-14] MEDS: Ondansetron 4 MG/2 ML VIAL IVP (19:38)
[2021-11-14 19:47] LABS: Diff Comment Agrees w/ Instrument; RBC Morphology Normal
[2021-11-14] MEDS: Normal Saline Flush 10 ML SYR IVP (19:52)
--- NOTE | 2021-11-14 20:17 | DI.VRAD_ITS ---
PROCEDURE INFORMATION: Exam: CTA Chest With Contrast CTA Abdomen With Contrast Exam date and time: 11/14/2021 7:29 PM Age: 31 years old Clinical indication: Shortness of breath; Other: Epigastric; Abdominal pain; Localized; Other: Mid abd pain; Prior surgery; Surgery date: 6+ months; Surgery type: Appendectomy; Patient HX: SOB, severe pain, diarrhea TECHNIQUE: Imaging protocol: Computed tomographic angiography of the chest with contrast. Computed tomographic angiography of the abdomen with contrast. 3D rendering (Not supervised by radiologist): MIP and/or 3D reconstructed images were created by the technologist. Radiation optimization: All CT scans at this facility use at least one of these dose optimization techniques: automated exposure control; mA and/or kV adjustment per patient size (includes targeted exams where dose is matched to clinical indication); or iterative reconstruction. Contrast material: OMNIPAQUE 350; Contrast volume: 75 ml; Contrast route: INTRAVENOUS (IV); COMPARISON: CT ABD PELVIS WITH CONTRAST 06/18/2017 08:54 FINDINGS: VASCULATURE: Pulmonary arteries: Bolus timing for this study is suboptimal for evaluation of pulmonary arteries however no definitive filling defects are seen to indicate pulmonary embolus. Aorta: No aortic aneurysm. No aortic dissection. Celiac trunk and mesenteric arteries: No occlusion or significant stenosis. Renal arteries: No occlusion or significant stenosis. CHEST: Lungs: Unremarkable. No consolidation. No masses. Pleural spaces: Unremarkable. No pneumothorax. No pleural effusion. Heart: Unremarkable. No cardiomegaly. No pericardial effusion. ABDOMEN AND PELVIS: Liver: No mass. Gallbladder and bile ducts: Unremarkable. No calcified stones. No ductal dilation. Pancreas: Unremarkable. No mass. No ductal dilation. Spleen: Unremarkable. No splenomegaly. Adrenal glands: Unremarkable. No mass. Kidneys and ureters: Unremarkable. No solid mass. No hydronephrosis. Stomach and bowel: There is ill-defined bowel wall thickening primarily involving distal small bowel loops in the right lower quadrant. There is some fluid distributed throughout small bowel. Appendix: No evidence of appendicitis. Intraperitoneal space: Small volume ascites is present throughout the abdomen. Reproductive: There is an IUD within the uterine fundus. 2.9 cm right adnexal cyst is present. There is a moderate amount of free fluid in the cul-de-sac. Lymph nodes: Unremarkable. No enlarged lymph nodes. Bones/joints: Unremarkable. No acute fracture. Soft tissues: Unremarkable. IMPRESSION: 1. There is no vascular abnormality in the chest, abdomen or pelvis. No evidence of pulmonary embolus. 2. Diffuse bowel wall thickening is seen specially involving small bowel loops in the right lower quadrant. This is most compatible with enteritis. There is associated small volume ascites. Dictated and Authenticated by: Arian Wright MD. Ordering:JAIRO Noland MD
[2021-11-14] MEDS: Normal Saline 250 ML 300 ML IV (20:32)
[2021-11-14] MEDS: POTASSIUM CHLORIDE 20 MEQ/100 ML BAG 50 MEQ IVPB (20:32)
[2021-11-14] MEDS: Potassium Chloride Liquid 20 MEQ PKT PO (21:21)
[2021-11-14 22:20] LABS: Bilirubin Negative (Negative); Blood Trace-lysed (Negative); Clarity Clear (Clear); Glucose Negative (Negative); Ketones 80 mg/dL (Negative); Leukocyte Esterase Negative (Negative); Nitrite Negative (Negative); Specific Gravity <= 1.005 (1.005-1.025); Urobilinogen 0.2 EU/dL (Up TO 0.2)
[2021-11-14 22:28] LABS: Bacteria Negative HPF (Negative); C & S Indicated? No; Crystals Negative HPF (Negative); Epithelial Cells Negative HPF (Negative); Mucus Negative (Negative); WBC 0-2 HPF (0-5)
== END 2021-11-14 23:06 | disposition home or self-care (01) ==
PROVIDERS: Emergency Provider Registered Nurse Emergency; PCP Nurse Practitioner Family
DX: K52.9 Noninfective gastroenteritis and colitis, unspecified (principal); E87.6 Hypokalemia; F17.200 Nicotine dependence, unspecified, uncomplicated; Z90.49 Acquired absence of other specified parts of digestive tract
CPT/HCPCS: 71275; 74177; 80053; 83690; 96361; 96365; 96366; 96375; 99285; 81003; 81015; 83735; 85025; 99284; J2405; J3480; J3490

== ENCOUNTER 2023-11-04 15:53 | Outpatient (REF) | payer OTHER, SELFPAY ==
[2023-11-04 19:14] LABS: HCT 42.1 % (36.0-46.0); MCH 31.7 pg (27.0-33.0); MCHC 33.3 % (32.0-36.0); MCV 95 fL (80-95); MPV 9.2 fL (8.0-11.0); Platelet Count 283 10^3/uL (130-400); RBC 4.42 10^6/uL (3.93-5.22); RDW 12.7 % (11.7-14.6); WBC 6.05 10^3/uL (4.4-10.8)
[2023-11-04 20:01] LABS: ALT 24 U/L (14-59); AST 13 U/L (15-37); Albumin 4.3 g/dL (3.4-5.0); Alkaline Phosphatase 48 U/L (46-116); Anion Gap 10.5 mmol/L (3-11); BUN 10 mg/dL (7-18); Bilirubin, Total 1.26 mg/dL (0.2-1.0); CO2 27.5 mmol/L (21.0-32.0); CREATININE 0.7 mg/dL (0.55-1.02); Calcium 9.2 mg/dL (8.5-10.1); Chloride 105 mmol/L (98-107); Estimated GFR 118.51 (mL/min/1.73m2); Ferritin 56 ng/mL (8-252); Glucose 96 mg/dL (74-106); Potassium 3.9 mmol/L (3.5-5.1); Sodium 143 mmol/L (136-145); TSH (W/Ref FT4) 2.09 uIU/mL (0.36-3.74); Total Protein 7.2 g/dL (6.4-8.2); Vitamin B12 260 pg/mL (193-986)
[2023-11-04 20:25] LABS: Iron 72 ug/dL (50-170); Total Iron Binding Capacity 293 ug/dL (250-450); Transferrin Sat 25 % (15-50)
== END 2023-11-04 15:54 | disposition home or self-care (01) ==
LOC: NCHCN 15:53
PROVIDERS: Visit Provider Nurse Practitioner Family
DX: F41.8 Other specified anxiety disorders (principal)
CPT/HCPCS: 80053; 82306; 85027; 82607; 82728; 83540; 83550; 84443

== ENCOUNTER 2023-11-21 07:49 | Emergency (ER) | payer OTHER, SELFPAY ==
--- NOTE | 2023-11-21 07:50 | ED.GENADUL_ITS ---
Discharge Plan Disposition Patient Disposition: Home Discharge Details Clinical Impression: Herpes zoster involving thoracic dermatome Primary Care Provider: Unknown,Unknown ED Provider: Manuel Ojeda Home Meds and New Rx's Prescriptions: New valacyclovir 1 gram tablet 1,000 mg PO Q8H 7 Days Qty: 21 0RF No Action dicyclomine 20 mg tablet 20 mg PO TID PRN (Reason: abdominal discomfort) Qty: 10 0RF Rx Instructions: Take 3 times a day as needed for abdominal cramping Discharge Instructions Instructions: Shingles Additional Instructions: You are seen in the emergency department for your rash which is most likely a shingles infection for which you are receiving an antiviral medication which you should take as directed. As we discussed if you develop fevers any worsening rash or cannot eat or drink as result of nausea or vomiting please return to the emergency department. For your pain please take medications as follows: 1. Take acetaminophen (Tylenol), 1,000 mg (two 500 mg tabs) every 6 hours [2. Take ibuprofen (Advil), 400 mg every 6 hours.] HPI General Date/Time Provider Initiated Documentation: 11/21/23 07:50 . HPI Narrative: MDM This is a quite well-appearing normothermic and not tachycardic 33-year-old female with left thoracic rash which appears most consistent with early zoster in an upper thoracic dermatome for which patient will receive prescription for valacyclovir. No pain out of proportion to suggest necrotizing soft tissue infection. No bullae to suggest Hill-Josse's nor TEN. No reported exposure to ursodiol to suggest contact dermatitis. No fevers nor oral involvement to suggest smallpox. No purpura to suggest DIC. No bullae to suggest bullous pemphigoid nor pemphigus vulgaris. No fluctuance to suggest abscess. No significant erythema to suggest cellulitis. Patient and I discussed analgesia using acetaminophen and ibuprofen. We discussed return to the ED for fevers inability tolerate p.o. or worsening pain. She understood her return indications and was discharged with empiric trial of expectant outpatient management. HPI This is a 33-year-old female arrived to the emergency department via private vehicle in the setting of a left upper chest rash which began 2 days ago. Patient notes that her rash feels burning and was initially associated with a headache. Her rash does not cross midline. It started in her left armpit but she had burning pain radiating down the volar side of her left arm. He denies any poison real exposure. No fevers nausea nor vomiting. She denies chance that she could be . She is moving her arm well. She denies any recent trauma. Exam General: Well-appearing in no acute distress speaking in complete sentences. Head: Normocephalic, atraumatic. Eye: Extraocular eye movements intact. No conjunctival injection. No scleral icterus. Ear, nose, mouth, throat: Grossly normal inspection. Normal voice, handling secretions normally. Neck: Trachea midline. Cardiovascular: Well-perfused distal extremities. Respiratory: Nonlabored respiration. Gastrointestinal: Nondistended abdomen. Musculoskeletal: No edema. Moving all 4 extremities spontaneously. Skin: In her left axilla there are several small vesicles. On her left anterior chest approximately second intercostal space midclavicular line there is a small cluster of vesicles measuring approximately 2 x 2 cm. Posteriorly at her mid scapular line in the left there is another small cluster of vesicles measuring approximately 2 x 2 cm. Neurologic: Alert and appropriate, no apparent acute deficits. Psychiatric: Mood and manner are appropriate. Grooming and personal hygiene are appropriate. Related Data Home Medications ?Medication ?Instructions ?Recorded ?Confirmed dicyclomine 20 mg tablet 20 mg PO TID PRN abdominal 11/14/21 discomfort #10 tabs valacyclovir 1 gram tablet 1,000 mg PO Q8H 7 days #21 tabs 11/21/23 Previous Rx's ?Medication ?Instructions ?Recorded dicyclomine 20 mg tablet 20 mg PO TID PRN abdominal 11/14/21 discomfort #10 tabs valacyclovir 1 gram tablet 1,000 mg PO Q8H 7 days #21 tabs 11/21/23 Allergies Allergy/AdvReac Type Severity Reaction Status Date / Time No Known Allergies Allergy Unverified 11/21/23 07:55 General ROMAN: 3 Medical Decision Making Quality:SDOH Health Related Social Needs: No Data to Display PFSH All Active Problems (Updated 11/21/23 @ 07:56 by Manuel Ojeda MD) Herpes zoster involving thoracic dermatome (Acute) Medical History (Updated 11/21/23 @ 07:56 by Manuel Ojeda MD) No significant past medical history Surgical History Appendectomy (11/27/16) Family History Mother Diabetes Father No problems noted. Brother No problems noted. Grandfather Diabetes Grandfather Personal history of malignant neoplasm Grandmother No problems noted. Grandmother Personal history of malignant neoplasm FAMILY HISTORY Diabetes Alcohol abuse Personal history of malignant neoplasm Anxiety Depressive disorder Social History Smoking/Tobacco Use Status: Current every day Smoking risk assessment performed?: Yes Alcohol Intake: former Drug use: Occasionally Substance use type: does not use and marijuana Do you feel safe at home: Yes Do you feel safe in your relationship?: Yes
[2023-11-21 07:53] VITALS: BP 124/63; PULSE 63; RESP 12; TEMP 36.6; O2SAT 99
== END 2023-11-21 08:05 | disposition home or self-care (01) ==
LOC: ER 08:02
PROVIDERS: Emergency Provider Emergency Medicine
DX: B02.8 Zoster with other complications (principal); R51.9 Headache, unspecified; F17.200 Nicotine dependence, unspecified, uncomplicated
CPT/HCPCS: 99283